=== PATIENT | female | born 1965 | race African-American/Black ===

== ENCOUNTER 2017-08-17 18:48 | Emergency (ER) | payer OTHER ==
[2017-08-17] MEDS ORDERED: MORPHINE 4 MG/ML SYR ONE (19:52)
[2017-08-17] MEDS ORDERED: NA CHLORIDE 0.9% 1,000 ML ONE (19:53)
[2017-08-17] MEDS ORDERED: ONDANSETRON 4 MG/2 ML VIAL ONE (19:53)
[2017-08-17 20:07] LABS: Urine Blood 1+ (NEG); Urine Glucose NEGATIVE (NEG); Urine Protein 1+ (NEG); Urine Specific Gravity >1.030 (1.005-1.030); Urine pH 5.5 (5.0-7.0)
[2017-08-17 20:11] LABS: Absolute Lymphocytes (CBC) 2.4 K/uL (0.7-4.9); Absolute Monocytes 0.5 K/uL (0.1-1.3); Absolute Neutrophil 4.5 K/uL (1.8-8.0); Basophils % 0.6 % (0-1.3); Eosinophils % 2.1 % (0-4.4); Hematocrit 36.7 % (36.0-45.0); Lymphocytes % 31.2 % (15.3-44.8); MCH 29.8 pg (27.0-35.0); MCV 88.2 fL (80-100); MPV 9.1 fL (7.6-11.3); Monocytes % 6.6 % (3.3-12.3); RBC Red Blood Cell Count 4.16 M/uL (3.86-4.86)
[2017-08-17 20:16] LABS: Urine Bacteria 20-50 /HPF (<20); Urine Culture Reflex Order REFLEXED; Urine Mucus 1+ /HPF (NONE SEEN)
[2017-08-17 20:19] LABS: Potassium 3.4 mEq/L (3.6-5.0)
[2017-08-17 20:25] LABS: Albumin 3.7 g/dL (3.2-5.5); Bilirubin Direct 0.1 mg/dL (0-0.2); Bilirubin Total 0.3 mg/dL (0.3-1.2)
--- NOTE | 2017-08-17 20:53 | RAD REPORT ---
EXAM DESCRIPTION: CTAbdomen Pelvis W Contrast - 08/17/2017 8:45 pm CLINICAL HISTORY: Abdominal pain. COMPARISON: 08/06/2015, 08/16/2013 TECHNIQUE: Biphasic CT imaging of the abdomen and pelvis was performed with 100 ml non-ionic IV cont rast. All CT scans are performed using dose optimization technique as appropriate and may include automated exposure control or mA/KV adjustment according to patient size. FINDINGS: The lung bases are clear. The liver demonstrates mild diffuse fatty infiltration. The spleen, pancreas, left adrenal gland and kidneys are within normal limits. 3 cm right adrenal myelolipoma is unchanged. No bowel obstruction, free air, free fluid or abscess. The appendix is normal. No evidence of signi ficant lymphadenopathy. No suspicious bony findings. Mild lumbar degenerative changes. IMPRESSION: No acute intra-abdominal or pelvic finding. Fatty liver. Stable right adrenal myelolipoma.
[2017-08-17] MEDS ORDERED: POTASSIUM CL SA 10 MEQ TAB PO ONE (21:18)
--- NOTE | 2017-08-17 21:25 | ER ---
Nurse's Notes [facility] Name: Crystal Newsome Age: 51 yrs Sex: Female : 1965 Arrival Date: 08/17/2017 Time: 18:50 Bed 14 Private MD: Diagnosis: Right flank pain. Abdominal pain Presentation: 08/17 18:53 Presenting complaint: Patient states: my right side is hurting, its like my side and tw2 goes to the back. Transition of care: patient was not received from another setting of care. Onset of symptoms was August 17, 2017. Initial Sepsis Screen: Does the patient meet any 2 criteria? No. Patient's initial sepsis screen is negative. Does the patient have a suspected source of infection? No. Patient's initial sepsis screen is negative. Care prior to arrival: None. 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 - Social history:: Smoking status: Patient/guardian denies using tobacco. Screenin:00 Abuse screen: Denies threats or abuse. Denies injuries from another. Nutritional bs1 screening: No deficits noted. Tuberculosis screening: No symptoms or risk factors identified. Fall Risk None identified. Assessment: 19:23 General: Appears uncomfortable, Behavior is cooperative, appropriate for age. Pain: bs1 Complains of pain in right flank/side Pain radiates to right side to flank. Neuro: Level of Consciousness is awake, alert, obeys commands, Oriented to person, place, time, situation, Appropriate for age Community Engagement Manager are equal bilaterally Moves all extremities. Gait is steady, Speech is normal, Facial symmetry appears normal. Cardiovascular: Denies chest pain, palpitations, shortness of breath, Heart tones S1 S2 present Capillary refill < 3 seconds Patient's skin is warm and dry. Respiratory: Airway is patent Trachea midline Respiratory effort is even, unlabored, Respiratory pattern is regular, symmetrical, Breath sounds are clear bilaterally. GI: No deficits noted. No signs and/or symptoms were reported involving the gastrointestinal system. Abdomen is round Bowel sounds present X 4 quads. : No deficits noted. No signs and/or symptoms were reported regarding the genitourinary system. Denies burning with urination, urinary frequency. EENT: No deficits noted. No signs and/or symptoms were reported regarding the EENT system. Derm: Skin is intact, Skin is pink, warm \T\ dry. Musculoskeletal: Circulation, motion, and sensation intact. Capillary refill < 3 seconds, Range of motion: intact in all extremities, Reports since right flank. 20:30 Reassessment: Patient appears in no apparent distress at this time. Patient and/or bs1 family updated on plan of care and expected duration. Pain level reassessed. Patient is alert, oriented x 3, equal unlabored respirations, skin warm/dry/pink. 21:45 Reassessment: Patient appears in no apparent distress at this time. Patient and/or bs1 family updated on plan of care and expected duration. Pain level reassessed. Patient is alert, oriented x 3, equal unlabored respirations, skin warm/dry/pink. Patient states symptoms have improved. Vital Signs: 18:57 BP 171 / 117; Pulse 103; Resp 18; Temp 99.3(O); Pulse Ox 96% on R/A; Weight 108.86 kg tw2 (R); Height 5 ft. 5 in. (165.10 cm); Pain 9/10; 19:17 BP 178 / 103; Pulse 99; Resp 16; Temp 98.6(O); Pulse Ox 99% on R/A; Weight 120.2 kg mt (R); Height 5 ft. 5 in. (165.10 cm) (R); 19:26 BP 142 / 91; Pulse 87; Pulse Ox 98% on R/A; bs1 20:04 BP 150 / 95; Pulse 92; Resp 18; Pulse Ox 99% on R/A; mt 20:44 BP 151 / 99; Pulse 89; Resp 18; Pulse Ox 97% on R/A; mt 21:45 BP 142 / 78; Pulse 94; Resp 16; Temp 98(O); Pulse Ox 98% on R/A; Pain 0/10; bs1 19:17 Body Mass Index 44.10 (120.20 kg, 165.10 cm) mn ED Course: 18:50 Patient arrived in ED. tw3 18:54 Triage completed. tw2 18:58 Arm band placed on. tw2 19:17 Jil Merchant, RN is Primary Nurse. bs1 19:41 Levi Lira MD is Attending Physician. pkl 20:15 Inserted saline lock: 22 gauge in right forearm, using aseptic technique. Missed bs1 attempt(s): 22 gauge in right antecubital area. 20:[address] via wheelchair. nj 20:44 CT completed. Patient tolerated procedure well. Patient moved back from CT. nj 20:45 CT Abd/Pelvis - W/Contrast In Process Unspecified. EDMS 21:00 Patient has correct armband on for positive identification. Bed in low position. Call bs1 light in reach. Side rails up X 1. Pulse ox on. NIBP on. 21:23 Varghese North MD is Referral Physician. pkl 22:04 No provider procedures requiring assistance completed. IV discontinued, bleeding bs1 controlled, No redness/swelling at site. Pressure dressing applied. Administered Medications: 20:18 Drug: NS 0.9% 1000 ml Route: IV; Rate: 125 ml/hr; Site: right forearm; bs1 22:05 Follow up: IV Status: Order to discontinue infusion; IV Intake: 200ml bs1 20:18 Drug: morphine 4 mg Route: IVP; Site: right forearm; bs1 22:06 Follow up: Response: No adverse reaction bs1 20:18 Drug: Zofran 4 mg Route: IVP; Site: right forearm; bs1 22:06 Follow up: Response: No adverse reaction bs1 21:19 Drug: K-Dur 20 mEq Route: PO; bs1 22:05 Follow up: Response: No adverse reaction bs1 Intake: 22:05 IV: 200ml; Total: 200ml. bs1 Outcome: 21:24 Discharge ordered by . pkl 22:05 Discharged to home ambulatory, with friend. bs1 22:05 Condition: stable 22:05 Discharge instructions given to patient, Instructed on discharge instructions, follow up and referral plans. medication usage, Demonstrated understanding of instructions, follow-up care, medications, Prescriptions given X 1. 22:07 Patient left the ED. bs1 Signatures: Dispatcher [employer] Levi Marvin MD MD pkl Wise, Tara, RN RN tw2 Aj Gonzalez Tia tw3 Mallory Santacruz mt, Brittany, RN RN bs1
--- NOTE | 2017-08-17 21:25 | EDPHYS ---
Physician Documentation [facility] Name: Crystal Newsome Age: 51 yrs Sex: Female : 1965 Arrival Date: 08/17/2017 Time: 18:50 Bed 14 Private MD: ED Physician Levi Lira HPI: 08/17 19:50 This 51 yrs old Black Female presents to ER via Ambulatory with complaints of Back Pain.pkl 19:50 The patient complains of pain in the right flank. The pain radiates to the right lower pkl quadrant. Onset: The symptoms/episode began/occurred yesterday. Associated signs and symptoms: Pertinent positives: nausea. The patient has not experienced similar symptoms in the past. 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 - Social history:: Smoking status: Patient/guardian denies using tobacco. ROS: 19:50 Eyes: Negative for injury, pain, redness, and discharge, ENT: Negative for injury, pkl pain, and discharge, Neck: Negative for injury, pain, and swelling, Cardiovascular: Negative for chest pain, palpitations, and edema, Respiratory: Negative for shortness of breath, cough, wheezing, and pleuritic chest pain. 19:50 Abdomen/GI: Positive for abdominal pain, nausea, of the right lower quadrant. 19:50 Back: Positive for flank pain, on the right. 19:50 : Negative for urinary symptoms. 19:50 MS/extremity: Negative for acute changes. 19:50 Skin: Negative for rash. 19:50 Neuro: Negative for altered mental status. Exam: 19:50 Head/Face: Normocephalic, atraumatic. Eyes: Pupils equal round and reactive to light, pkl extra-ocular motions intact. Lids and lashes normal. Conjunctiva and sclera are non-icteric and not injected. Cornea within normal limits. Periorbital areas with no swelling, redness, or edema. ENT: Nares patent. No nasal discharge, no septal abnormalities noted. Tympanic membranes are normal and external auditory canals are clear. Oropharynx with no redness, swelling, or masses, exudates, or evidence of obstruction, uvula midline. Mucous membranes moist. Neck: Trachea midline, no thyromegaly or masses palpated, and no cervical lymphadenopathy. Supple, full range of motion without nuchal rigidity, or vertebral point tenderness. No Meningismus. Chest/axilla: Normal chest wall appearance and motion. Nontender with no deformity. No lesions are appreciated. Cardiovascular: Regular rate and rhythm with a normal S1 and S2. No gallops, murmurs, or rubs. Normal PMI, no JVD. No pulse deficits. Respiratory: Lungs have equal breath sounds bilaterally, clear to auscultation and percussion. No rales, rhonchi or wheezes noted. No increased work of breathing, no retractions or nasal flaring. 19:50 Abdomen/GI: Bowel sounds: normal, Palpation: soft, mild abdominal tenderness, in the right upper quadrant and right lower quadrant, rebound tenderness, is not appreciated. 19:50 Back: pain, that is moderate, of the right flank. 19:50 : Exam negative for acute changes. 19:50 Musculoskeletal/extremity: Exam is negative for acute changes. 19:50 Skin: Exam negative for rash. 19:50 Neuro: Orientation: is normal, Mentation: is normal, Cranial nerves: grossly normal, Motor: is normal. Vital Signs: 18:57 BP 171 / 117; Pulse 103; Resp 18; Temp 99.3(O); Pulse Ox 96% on R/A; Weight 108.86 kg tw2 (R); Height 5 ft. 5 in. (165.10 cm); Pain 9/10; 19:17 BP 178 / 103; Pulse 99; Resp 16; Temp 98.6(O); Pulse Ox 99% on R/A; Weight 120.2 kg mt (R); Height 5 ft. 5 in. (165.10 cm) (R); 19:26 BP 142 / 91; Pulse 87; Pulse Ox 98% on R/A; bs1 20:04 BP 150 / 95; Pulse 92; Resp 18; Pulse Ox 99% on R/A; mt 20:44 BP 151 / 99; Pulse 89; Resp 18; Pulse Ox 97% on R/A; mt 21:45 BP 142 / 78; Pulse 94; Resp 16; Temp 98(O); Pulse Ox 98% on R/A; Pain 0/10; bs1 19:17 Body Mass Index 44.10 (120.20 kg, 165.10 cm) mt MDM: 19:41 Patient medically screened. pkl 21:22 Data reviewed: vital signs, nurses notes, lab test result(s), radiologic studies, CT pkl scan. 08/17 19:50 Order name: Amylase, Serum; Complete Time: 21:14 pkl 08/17 19:50 Order name: Basic Metabolic Panel; Complete Time: 21:14 pkl 08/17 19:50 Order name: CBC with Diff; Complete Time: 21:14 pkl 08/17 19:50 Order name: Creatinine for Radiology; Complete Time: 20:19 pkl 08/17 19:50 Order name: Hepatic Function; Complete Time: 21:14 pkl 08/17 19:50 Order name: Lipase; Complete Time: 21:14 pkl 08/17 19:50 Order name: Urine Microscopic Only; Complete Time: 20:19 pkl 08/17 20:04 Order name: Urine Dipstick--Ancillary (enter results); Complete Time: 20:19 rg2 08/17 20:04 Order name: Urine --Ancillary (enter results); Complete Time: 20:19 rg2 08/17 20:17 Order name: Urine Culture EDKS 08/17 20:21 Order name: CT Abd/Pelvis - W/Contrast; Complete Time: 21:14 pkl 08/17 19:50 Order name: IV Saline Lock; Complete Time: 21:35 pkl 08/17 19:50 Order name: Labs collected and sent; Complete Time: 21:35 pkl 08/17 19:50 Order name: Urine Dipstick-Ancillary (obtain specimen); Complete Time: 21:35 pkl Administered Medications: 20:18 Drug: NS 0.9% 1000 ml Route: IV; Rate: 125 ml/hr; Site: right forearm; bs1 22:05 Follow up: IV Status: Order to discontinue infusion; IV Intake: 200ml bs1 20:18 Drug: morphine 4 mg Route: IVP; Site: right forearm; bs1 22:06 Follow up: Response: No adverse reaction bs1 20:18 Drug: Zofran 4 mg Route: IVP; Site: right forearm; bs1 22:06 Follow up: Response: No adverse reaction bs1 21:19 Drug: K-Dur 20 mEq Route: PO; bs1 22:05 Follow up: Response: No adverse reaction bs1 Disposition: 08/17/17 21:24 Discharged to Home. Impression: Right flank pain. Abdominal pain. - Condition is Stable. - Prescriptions for Ultram 50 mg Oral Tablet - take 1 tablet by ORAL route every 8 hours As needed; 20 tablet. - Medication Reconciliation Form, Thank You Letter, Antibiotic Education, Prescription Opioid Use form. - Follow up: Varghese North MD; When: 2 - 3 days; Reason: Re-evaluation by your physician. - Problem is new. - Symptoms have improved. Signatures: Dispatcher [employer] EDMS Levi Lira MD MD pkl Wise, Tara RN RN tw2 Jil Merchant RN RN bs1
[2017-08-17 22:16] VITALS: BP 142/78; TEMP 98; O2SAT 98
== END 2017-08-17 22:07 | disposition home or self-care (01) ==
LOC: ER 18:48
DX: R10.31 Right lower quadrant pain (principal); I10 Essential (primary) hypertension; Z88.0 Allergy status to penicillin; Z88.1 Allergy status to other antibiotic agents
CPT/HCPCS: 36415; 74177; 80048; 80076; 81003; 81015; 81025; 82150; 83690; 85025; 87086; 87088; 96361; 96374; 96375; 99284; J2405; J7030; Q9967

== ENCOUNTER 2018-03-04 15:19 | Observation (INO) | payer OTHER ==
[2018-03-04] MEDS ORDERED: NITROGLYCERIN 0.4 MG/TAB SL ONE (15:47)
[2018-03-04] MEDS ORDERED: ASPIRIN 81 MG CHEWABLE TABLET ONE (15:47)
[2018-03-04 16:18] LABS: Absolute Lymphocytes (CBC) 1.5 K/uL (0.7-4.9); Absolute Monocytes 0.5 K/uL (0.1-1.3); Absolute Neutrophil 2.1 K/uL (1.8-8.0); Basophils % 0.6 % (0-1.3); Eosinophils % 2.4 % (0-4.4); Hematocrit 37.5 % (36.0-45.0); Lymphocytes % 34.6 % (15.3-44.8); MCH 30.1 pg (27.0-35.0); MCV 90.3 fL (80-100); MPV 9.4 fL (7.6-11.3); Monocytes % 12.1 % (3.3-12.3); RBC Red Blood Cell Count 4.16 M/uL (3.86-4.86)
[2018-03-04 16:19] LABS: Protime INR 1.22
[2018-03-04 16:36] LABS: ALT/SGPT 23 U/L (12-78); AST/SGOT 19 U/L (15-37); Albumin 3.2 g/dL (3.4-5.0); Alkaline Phosphatase 86 U/L (45-117); BUN Blood Urea Nitrogen 10 mg/dL (7-18); Bicarbonate 26 mmol/L (21-32); Bilirubin Direct < 0.1 mg/dL (0-0.2); Bilirubin Total 0.2 mg/dL (0.2-1.0); Glucose Level 95 mg/dL (74-106); Lipase 236 U/L (73-393); Magnesium 1.9 mg/dL (1.8-2.4); NT PRO-BNP 57 pg/mL (<125); Potassium 3.9 mmol/L (3.5-5.1); Sodium Level 139 mmol/L (136-145); Troponin (Emerg Dept Use Only) < 0.02 ng/mL (0.0-0.045)
--- NOTE | 2018-03-04 16:58 | EDPHYS ---
Physician Documentation [facility] Name: Crystal Newsome Age: 52 yrs Sex: Female : 1965 Arrival Date: 03/04/2018 Time: 15:21 Bed 15 Private MD: Fredis King E ED Physician Yonas Holder HPI: 03/04 15:34 This 52 yrs old Black Female presents to ER via Ambulatory with complaints of Chest cp Pain. 15:34 The patient or guardian reports chest pain that is located primarily in the substernal cp area. 15:34 Onset: this morning, at 03:00. The pain radiates to the left arm. cp 15:34 The chest pain is described as aching. cp 15:34 Duration: The patient or guardian reports a single episode, that is still ongoing, and cp worsening. SVP RESEARCH & EBUSINESS OPERATIONS: 15:26 LMP N/A - Post-menopause aj Historical: - Allergies: 15:26 amoxicillin trihydrate; aj 15:26 Augmentin; aj - Home Meds: 15:26 none [Active]; aj - PMHx: 15:26 Hypertension; aj - PSHx: 15:26 ; aj - Immunization history:: Adult Immunizations up to date. - Social history:: Smoking status: Patient/guardian denies using tobacco. - Ebola Screening: : Patient negative for fever greater than or equal to 101.5 degrees Fahrenheit, and additional compatible Ebola Virus Disease symptoms Patient denies exposure to infectious person Patient denies travel to an Ebola-affected area in the 21 days before illness onset No symptoms or risks identified at this time. ROS: 15:39 Constitutional: Negative for body aches, chills, fever, poor PO intake. cp 15:39 Eyes: Negative for injury, pain, redness, and discharge. cp 15:39 Eyes: Negative for discharge, redness. cp 15:39 Cardiovascular: Positive for chest pain, Negative for edema, palpitations. cp 15:39 Respiratory: Negative for cough, shortness of breath, wheezing. 15:39 Abdomen/GI: Negative for abdominal pain, nausea, vomiting, and diarrhea, black/tarry stool, rectal bleeding. 15:39 Back: Negative for pain at rest, pain with movement, radiated pain. 15:39 MS/extremity: Positive for pain, of the left arm. 15:39 Skin: Negative for cellulitis, rash. 15:39 Neuro: Negative for altered mental status, headache, numbness, syncope, near syncope, tingling, weakness. 15:39 All other systems are negative. Exam: 15:41 ECG was reviewed by the Attending Physician. cp 15:45 Constitutional: The patient appears in no acute distress, alert, awake, cp non-diaphoretic, non-toxic, well developed, well nourished, uncomfortable. 15:45 Head/Face: Normocephalic, atraumatic. Eyes: Pupils equal round and reactive to light, cp extra-ocular motions intact. Lids and lashes normal. Conjunctiva and sclera are non-icteric and not injected. Cornea within normal limits. Periorbital areas with no swelling, redness, or edema. ENT: Nares patent. No nasal discharge, no septal abnormalities noted. Tympanic membranes are normal and external auditory canals are clear. Oropharynx with no redness, swelling, or masses, exudates, or evidence of obstruction, uvula midline. Mucous membranes moist. Neck: Trachea midline, no thyromegaly or masses palpated, and no cervical lymphadenopathy. Supple, full range of motion without nuchal rigidity, or vertebral point tenderness. No Meningismus. Chest/axilla: Normal chest wall appearance and motion. Nontender with no deformity. No lesions are appreciated. Cardiovascular: Regular rate and rhythm with a normal S1 and S2. No gallops, murmurs, or rubs. Normal PMI, no JVD. No pulse deficits. Respiratory: Lungs have equal breath sounds bilaterally, clear to auscultation and percussion. No rales, rhonchi or wheezes noted. No increased work of breathing, no retractions or nasal flaring. Abdomen/GI: Soft, non-tender, with normal bowel sounds. No distension or tympany. No guarding or rebound. No evidence of tenderness throughout. Back: No spinal tenderness. No costovertebral tenderness. Full range of motion. Skin: Warm, dry with normal turgor. Normal color with no rashes, no lesions, and no evidence of cellulitis. Neuro: Awake and alert, GCS 15, oriented to person, place, time, and situation. Cranial nerves II-XII grossly intact. Motor strength 5/5 in all extremities. Sensory grossly intact. Cerebellar exam normal. Normal gait. Vital Signs: 15:26 BP 180 / 98; Pulse 88; Resp 20; Temp 97.6; Pulse Ox 98% on R/A; Weight 119.29 kg; aj Height 5 ft. 4 in. (162.56 cm); 15:45 BP 159 / 103; Pulse 93; Resp 18 S; Pulse Ox 99% ; Pain 5/10; aa5 16:10 BP 158 / 90; Pulse 90; Resp 18 S; Pulse Ox 97% on R/A; Pain 4/10; aa5 16:35 BP 153 / 82; Pulse 74; Resp 19 S; Temp 98.0(O); Pulse Ox 100% on R/A; Pain 3/10; aa5 17:30 BP 158 / 91; Pulse 76; Resp 16 S; Pulse Ox 99% on R/A; Pain 3/10; aa5 19:57 BP 139 / 77; Pulse 72; Resp 20; Pulse Ox 96% on R/A; tl2 15:26 Body Mass Index 45.14 (119.29 kg, 162.56 cm) aj MDM: 15:27 Patient medically screened. cp 16:00 Differential diagnosis: abnormal EKG, acute myocardial infarction, acute pericarditis, cp costochondritis, gastritis, pancreatitis, pericarditis, pleurisy, pneumonia, pneumothorax, pulmonary embolus, stable angina, thoracic aortic disection, unstable angina. 16:55 The patient was given aspirin in the Emergency Department. cp 16:55 Data reviewed: vital signs, nurses notes, lab test result(s), EKG, radiologic studies, cp plain films. Test interpretation: by ED physician or midlevel provider: ECG, plain radiologic studies. Response to treatment: the patient's symptoms have markedly improved after treatment, and as a result, I will admit patient. Physician consultation: Dao Pizarro DO was contacted at 16:55, regarding admission, to the telemetry unit. patient's condition. 03/04 15:34 Order name: Basic Metabolic Panel; Complete Time: 16:40 cp 03/04 16:56 Interpretation: Normal except: GFR 79. cp 03/04 15:34 Order name: CBC with Diff; Complete Time: 16:55 cp 03/04 16:55 Interpretation: Normal except: WBC 4.2. cp 03/04 15:34 Order name: LFT's; Complete Time: 16:40 03/04 16:56 Interpretation: Normal except: ALB 3.2; GLOB 4.8; A/G 0.7. 03/04 15:34 Order name: Magnesium; Complete Time: 16:40 03/04 15:34 Order name: NT PRO-BNP; Complete Time: 16:40 03/04 15:34 Order name: PT-INR; Complete Time: 16:55 03/04 15:34 Order name: Troponin (emerg Dept Use Only); Complete Time: 16:40 03/04 16:56 Interpretation: TROPED < 0.02; Reviewed. 03/04 15:34 Order name: Lipase; Complete Time: 16:40 03/04 17:06 Order name: T4 Free [facility] 03/04 17:06 Order name: Thyroid Stimulating Hormone [facility] 03/04 17:06 Order name: Basic Metabolic Panel [facility] 03/04 17:06 Order name: Basic Metabolic Panel [facility] 03/04 17:06 Order name: CKMB Creatine Kinase MB [facility] 03/04 17:06 Order name: CKMB Creatine Kinase MB [facility] 03/04 15:34 Order name: XRAY Chest (1 view) 03/04 17:06 Order name: CKMB Creatine Kinase MB [facility] 03/04 17:06 Order name: Creatine Phosphokinase [facility] 03/04 17:06 Order name: Creatine Phosphokinase [facility] 03/04 17:06 Order name: Creatine Phosphokinase [facility] 03/04 17:06 Order name: Lipid Profile [facility] 03/04 17:06 Order name: Lipid Profile [facility] 03/04 17:06 Order name: Magnesium [facility] 03/04 17:06 Order name: Magnesium [facility] 03/04 17:06 Order name: Troponin I [facility] 03/04 17:06 Order name: Troponin I [facility] 03/04 17:06 Order name: Troponin I [facility] 03/04 15:34 Order name: EKG; Complete Time: 15:35 03/04 15:34 Order name: Cardiac monitoring; Complete Time: 16:02 03/04 15:34 Order name: EKG - Nurse/Tech; Complete Time: 16:02 03/04 15:34 Order name: IV Saline Lock; Complete Time: 16:02 03/04 15:34 Order name: Labs collected and sent; Complete Time: 16:02 cp 03/04 15:34 Order name: O2 Per Protocol; Complete Time: 16:02 cp 03/04 15:34 Order name: O2 Sat Monitoring; Complete Time: 16:02 cp 03/04 17:01 Order name: Diet Heart Healthy; Complete Time: 17:02 mh5 03/04 17:06 Order name: CONS Physician Consult EDMS 03/04 17:06 Order name: Heart Healthy EDMS EC:41 Rate is 72 beats/min. Rhythm is regular. OK interval is normal. QRS interval is normal. cp QT interval is normal. Interpreted by me. Reviewed by me. Administered Medications: 15:38 Drug: Nitroglycerin 0.4 mg Route: Sublingual; aa5 15:45 Follow up: Response: No adverse reaction; Pain is decreased aa5 15:38 Drug: Aspirin Chewable Tablet 324 mg Route: PO; aa5 16:00 Follow up: Response: No adverse reaction aa5 16:35 Not Given (Patient Refused): Nitroglycerin 0.4 mg Sublingual once; VO received at 1545 aa5 17:00 Drug: Metoprolol 25 mg Route: PO; aa5 17:30 Follow up: Response: No adverse reaction aa5 Disposition: 03/04/18 16:57 Hospitalization ordered by Dao Pizarro for Observation. Preliminary diagnosis are Chest pain, unspecified, Hypertensive heart disease. - Bed requested for Telemetry/MedSurg (observation). - Status is Observation. tl2 - Condition is Stable. - Problem is new. - Symptoms have improved. UTI on Admission? No Addendum: 03/07/2018 09:46 Co-signature as Attending Physician, Yonas Holder MD I agree with the assessment and c romero plan of care. Signatures: Dispatcher [employer] [facility] Yovana Campbell RN RN dw Myers, Amanda, RN RN aj Anderson, Corey, MD MD cha Calderon, Audri RN RN aa5 Yonas Thibodeaux PA PA cp Knox, Taylor RN RN tl2 Corrections: (The following items were deleted from the chart) 03/04 17:50 15:34 Urine Test ordered. aa 17:50 15:34 Urine Dipstick-Ancillary ordered. aa5 18:32 16:57 Hospitalization Ordered by Dao Pizarro DO for Observation. Preliminary dw diagnosis is Chest pain, unspecified; Hypertensive heart disease. Bed requested for Telemetry/MedSurg (observation). Status is Observation. Condition is Stable. Problem is new. Symptoms have improved. UTI on Admission? No. cp 21:04 18:32 03/04/2018 16:57 Hospitalization Ordered by Dao Pizarro DO for Observation. tl2 Preliminary diagnosis is Chest pain, unspecified; Hypertensive heart disease. Bed requested for Telemetry/MedSurg (observation). Status is Observation. Condition is Stable. Problem is new. Symptoms have improved. UTI on Admission? No. dw
--- NOTE | 2018-03-04 16:58 | ER ---
Nurse's Notes [facility] Name: Crystal Newsome Age: 52 yrs Sex: Female : 1965 Arrival Date: 03/04/2018 Time: 15:21 Bed 15 Private MD: Fredis King E Diagnosis: Chest pain, unspecified;Hypertensive heart disease Presentation: 03/04 15:24 Presenting complaint: Patient states: Sternal chest pain that started at 0300 this AM. aj Patient reports pain has been unrelieved by Tums. Reports pain is now radiating into left arm. Transition of care: patient was not received from another setting of care. Onset of symptoms was March 04, 2018. Risk Assessment: Do you want to hurt yourself or someone else? Patient reports no desire to harm self or others. Initial Sepsis Screen: Does the patient meet any 2 criteria? No. Patient's initial sepsis screen is negative. Does the patient have a suspected source of infection? No. Patient's initial sepsis screen is negative. Care prior to arrival: None. 15:24 Method Of Arrival: Ambulatory 15:24 Acuity: YAMILE 2 Triage Assessment: 15:26 General: Appears in no apparent distress. uncomfortable, Behavior is calm, cooperative, aj appropriate for age. Pain: Complains of pain in chest and left arm. Neuro: Level of Consciousness is awake, alert, obeys commands, Oriented to person, place, time, situation, Appropriate for age. Cardiovascular: Reports chest pain, shortness of breath, Capillary refill < 3 seconds in bilateral fingers Patient's skin is warm and dry. Chest pain is described as severe, radiates to left arm(s). Respiratory: Reports shortness of breath Airway is patent Respiratory effort is even, unlabored, Respiratory pattern is regular, symmetrical. Derm: Skin is intact, is healthy with good turgor, Skin is pink, warm \\T\\ dry. normal. 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 - Social history:: Smoking status: Patient/guardian denies using tobacco. - Ebola Screening: : Patient negative for fever greater than or equal to 101.5 degrees Fahrenheit, and additional compatible Ebola Virus Disease symptoms Patient denies exposure to infectious person Patient denies travel to an Ebola-affected area in the 21 days before illness onset No symptoms or risks identified at this time. Screenin:30 Abuse screen: Denies threats or abuse. Nutritional screening: No deficits noted. aa5 Tuberculosis screening: No symptoms or risk factors identified. Fall Risk None identified. Assessment: 15:30 General: Appears uncomfortable, Behavior is calm, cooperative. Pain: Complains of pain aa5 in mid-sternal area Pain radiates to left arm Pain currently is 10 out of 10 on a pain scale. Quality of pain is described as Pt states "It just hurts" Pain began Pt states "around 3 am today" Is continuous. Neuro: Level of Consciousness is awake, alert, obeys commands, Oriented to person, place, time, situation. Cardiovascular: Heart tones S1 S2 present Rhythm is sinus rhythm. Respiratory: Airway is patent Respiratory effort is even, unlabored, Respiratory pattern is regular, symmetrical, Breath sounds are clear bilaterally. GI: Abdomen is round non-distended, Bowel sounds present X 4 quads. Abd is soft and non tender X 4 quads. : No signs and/or symptoms were reported regarding the genitourinary system. EENT: No signs and/or symptoms were reported regarding the EENT system. Derm: Skin is dry, Skin is normal, Skin temperature is warm. Musculoskeletal: Range of motion: intact in all extremities. 15:45 Reassessment: Patient states feeling better. Pain: Pain currently is 5 out of 10 on a aa5 pain scale. Neuro: Level of Consciousness is awake, alert, obeys commands, Oriented to person, place, time, situation. Respiratory: Airway is patent Respiratory effort is even, unlabored, Respiratory pattern is regular, symmetrical. Derm: Skin is dry, Skin is normal, Skin temperature is warm. 16:35 Reassessment: Patient and/or family updated on plan of care and expected duration. Pain aa5 level reassessed. Patient states feeling better. Pain: Pain currently is 3 out of 10 on a pain scale. Neuro: Level of Consciousness is awake, alert, obeys commands, Oriented to person, place, time, situation. Respiratory: Airway is patent Respiratory effort is even, unlabored, Respiratory pattern is regular, symmetrical. Derm: Skin is dry, Skin is normal, Skin temperature is warm. 17:30 Reassessment: Patient and/or family updated on plan of care and expected duration. Pain aa5 level reassessed. Patient states feeling better. Pain: Pain currently is 3 out of 10 on a pain scale. Neuro: Level of Consciousness is awake, alert, obeys commands, Oriented to person, place, time, situation. Respiratory: Airway is patent Respiratory effort is even, unlabored, Respiratory pattern is regular, symmetrical. Derm: Skin is dry, Skin is normal, Skin temperature is warm. 17:45 Reassessment: Pt sitting up in bed eating, pt tolerating well. Awaiting room assignment aa5 . 19:20 Reassessment: Pt stable and ready for transport upstairs when nurse is ready. tl2 Vital Signs: 15:26 BP 180 / 98; Pulse 88; Resp 20; Temp 97.6; Pulse Ox 98% on R/A; Weight 119.29 kg; aj Height 5 ft. 4 in. (162.56 cm); 15:45 BP 159 / 103; Pulse 93; Resp 18 S; Pulse Ox 99% ; Pain 5/10; aa5 16:10 BP 158 / 90; Pulse 90; Resp 18 S; Pulse Ox 97% on R/A; Pain 4/10; aa5 16:35 BP 153 / 82; Pulse 74; Resp 19 S; Temp 98.0(O); Pulse Ox 100% on R/A; Pain 3/10; aa5 17:30 BP 158 / 91; Pulse 76; Resp 16 S; Pulse Ox 99% on R/A; Pain 3/10; aa5 19:57 BP 139 / 77; Pulse 72; Resp 20; Pulse Ox 96% on R/A; tl2 15:26 Body Mass Index 45.14 (119.29 kg, 162.56 cm) aj ED Course: 15:21 Patient arrived in ED. mr 15:21 Fredis King MD is Private Physician. mr 15:25 Triage completed. aj 15:26 Arm band placed on left wrist. Patient placed in an exam room. EKG completed in triage. aj Results shown to . 15:27 Yonas Thibodeaux PA is PHCP. cp 15:27 Yonas Holder MD is Attending Physician. cp 15:30 Patient has correct armband on for positive identification. Placed in gown. Bed in low aa5 position. Call light in reach. Side rails up X2. noteman on. Pulse ox on. NIBP on. 15:32 EKG done, by electronic systems technician. reviewed by Yonas ARNOLD. sm3 15:35 Nicolasa Ch, RN is Primary Nurse. aa5 15:45 Patient maintains SpO2 saturation greater than 95% on room air. aa5 15:48 Missed attempt(s): 20 gauge in right antecubital area. mh5 15:59 Initial lab(s) drawn, by me, sent to lab. Inserted saline lock: 22 gauge in right aa5 forearm, using aseptic technique. Blood collected. 16:19 X-ray completed. Portable x-ray completed in exam room. Patient tolerated procedure mh1 well. 16:35 XRAY Chest (1 view) In Process Unspecified. EDMS 16:56 Dao Pizarro DO is Hospitalizing Provider. cp 18:01 No provider procedures requiring assistance completed. aa5 19:05 Report given to SAMIR Chiang. aa5 21:04 Patient admitted, IV remains in place. tl2 Administered Medications: 15:38 Drug: Nitroglycerin 0.4 mg Route: Sublingual; aa5 15:45 Follow up: Response: No adverse reaction; Pain is decreased aa5 15:38 Drug: Aspirin Chewable Tablet 324 mg Route: PO; aa5 16:00 Follow up: Response: No adverse reaction aa5 16:35 Not Given (Patient Refused): Nitroglycerin 0.4 mg Sublingual once; VO received at 1545 aa5 17:00 Drug: Metoprolol 25 mg Route: PO; aa5 17:30 Follow up: Response: No adverse reaction aa5 Outcome: 16:57 Decision to Hospitalize by Provider. cp 21:03 Admitted to Tele accompanied by tech, via wheelchair, room 411, with chart, Report tl2 called to SAMIR Goyal 21:03 Condition: stable 21:03 Discharge instructions given to patient, Instructed on the need for admit. 21:04 Patient left the ED. tl2 Signatures: Dispatcher [employer] EDMS Mariel De Santiago RN RN aj Rivera, Mary mr Harvey, Martha 1 Nicolasa Ch, RN RN aa5 Yonas Thibodeaux PA PA cp Knox, Taylor, RN RN tl2 Linnette Anderson 5 Magalie Clark 3
[2018-03-04] MEDS ORDERED: NITROGLYCERIN 0.4 MG/TAB SL PRN (17:01)
[2018-03-04] MEDS ORDERED: ACETAMINOPHEN 500 MG TAB PO PRN (17:01)
[2018-03-04] MEDS ORDERED: MORPHINE 2 MG/ML SYR IV PRN (17:01)
[2018-03-04] MEDS ORDERED: ONDANSETRON 4 MG/2 ML VIAL IV PRN (17:01)
--- NOTE | 2018-03-04 17:02 | RAD REPORT ---
EXAM DESCRIPTION: RAD - Chest Single View - 03/04/2018 4:24 pm CLINICAL HISTORY: Chest pain COMPARISON: July 2015 TECHNIQUE: AP portable chest image was obtained 1617 hours . FINDINGS: Lungs are clear. Heart and vasculature are normal. No measurable pleural effusion and no p neumothorax. No acute bony abnormality seen. No acute aortic findings suspected. IMPRESSION: No acute cardiopulmonary process. No significant interval change.
[2018-03-04] MEDS ORDERED: METOPROLOL TAR 25 MG TAB ONE (17:07)
--- NOTE | 2018-03-04 17:12 | P.HP ---
Certification for Inpatient Patient admitted to: Observation With expected LOS: <2 Midnights Patient will require the following post-hospital care: None Practitioner: I am a practitioner with admitting privileges, knowledge of patient current condition, hospital course, and medical plan of care. Services: Services provided to patient in accordance with Admission requirements found in Title 42 Section 412.3 of the Code of Federal Regulations Patient History Date of Service: 03/04/18 Primary Care Provider: Dr. King Reason for admission: Chest pain History of Present Illness: 52-year-old female presented to the emergency room with chest pain. Chest pain started last night around 3:00 a.m.. It was mainly to the substernal region. She also had pain to the left arm. There was mild radiation. She thought it was gas related. She woke up that morning and had some Tums with Pepsi. She was elevated better. The pain persisted. There was no indication of shortness of breath, nausea, vomiting, palpitations or lightheadedness. She came to the ER for further evaluation. Patient with history of hypertension. In the ER patient evaluated. Blood pressures elevated upon arrival. Blood pressure 179/115. Initial CBC unremarkable. BMP unremarkable. Troponin unremarkable. No significant EKG changes noted. Patient was admitted for observation. When I saw the patient ER, she appeared comfortable. She reported that the pain was improved with aspirin and nitro given in the emergency room. Blood pressures improved with a blood pressure 153/82. Patient does not smoke or drink alcohol. Patient reports having a stress test many years ago which was unremarkable. Patient does snore heavily. Allergies amoxicillin trihydrate [From Augmentin] Allergy (Intermediate, Verified 14:42) Itching/Hives/Rash potassium clavulanate [From Augmentin] Allergy (Intermediate, Verified 02/12/12 14:42) Itching/Hives/Rash No Known Allergies Allergy (Uncoded 08/07/15 01:40) Unknown Home medications list reviewed: Yes - Past Medical/Surgical History Diabetic: No -: Hypertension -: Obesity -: Suspect obstructive sleep apnea -: Psychosocial/ Personal History: Patient is single. She has 4 children. 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 - Family History Father -: Cancer (Throat cancer) - Social History Smoking Status: Never smoker Alcohol use: No CD- Drugs: No Caffeine use: Yes Place of Residence: Home Review of Systems General: As per HPI Eyes: Unremarkable ENT: Unremarkable Respiratory: Unremarkable Cardiovascular: Chest Pain, As per HPI Gastrointestinal: As per HPI Genitourinary: Unremarkable Musculoskeletal: Unremarkable Integumentary: Unremarkable Neurological: Unremarkable Lymphatics: Unremarkable Physical Examination - Physical Exam General: Alert, In no apparent distress, Oriented x3, Cooperative HEENT: Atraumatic, Normocephalic, PERRLA, Mucous membr. moist/pink, EOMI Neck: Supple, No Thyromegaly Respiratory: Clear to auscultation bilaterally, Normal air movement Cardiovascular: Normal pulses, Regular rate/rhythm Gastrointestinal: Normal bowel sounds, Soft and benign, Non-distended, No tenderness, No masses, No rebound, No guarding Musculoskeletal: No erythema, No tenderness, No warmth Integumentary: No tenderness/swelling, No erythema, No warmth, No cyanosis Neurological: Normal speech, Normal strength at 5/5 x4 extr, Normal tone, Normal affect - Studies Laboratory Data (last 24 hrs) 03/04/18 15:58: PT 14.4 H, INR 1.22 03/04/18 15:58: WBC 4.2 L, Hgb 12.5, Hct 37.5, Plt Count 242 03/04/18 15:58: Sodium 139, Potassium 3.9, BUN 10, Creatinine 0.90, Glucose 95, Magnesium 1.9, Total Bilirubin 0.2, AST 19, ALT 23, Alkaline Phosphatase 86, Lipase 236 Assessment and Plan - Plan Impression: Chest pain, atypical with hypertension, uncontrolled History of snoring likely underlying obstructive sleep apnea Obesity Plan: Chest pain, atypical with hypertension, uncontrolled: Will monitor the patient closely. Continue with chest pain protocol. Will continue with aspirin. Will provide nitro glycerin for chest pain. Blood pressure is uncontrolled. Will increase lisinopril to 20 mg 1 pill twice daily. Will add metoprolol 12.5 mg 1 pill twice daily. Will hold hydrochlorothiazide. Will continue to monitor on telemetry. Will order echocardiogram to further evaluate. Cardiology consulted to further assess. If unremarkable anticipate possible discharge tomorrow with cardiac workup as an outpatient. Patient will need better blood pressure control History of snoring likely underlying obstructive sleep apnea: Patient reports snoring. Patient likely with underlying obstructive sleep apnea. Patient will need follow up with pulmonology as an outpatient to further evaluate. Obesity: Will check BMI. Lifestyle modification education will be provided. Discharge Plan: Home Plan to discharge in: 24 Hours - Advance Directives Does patient have a Living Will: No Does patient have a Durable POA for Healthcare: No - Code Status/Comfort Care Code Status Assessed: Yes (Patient full code) Time Spent Managing Pts Care (In Minutes): 55
[2018-03-04] MEDS ORDERED: ENOXAPARIN 40 MG/0.4 ML SQ SCH (18:00)
[2018-03-04] MEDS: METOPROLOL TAR 25 MG TAB PO SCH (18:00)
--- NOTE | 2018-03-04 18:46 | EKG ---
Test Date: 2018-03-04 Test Time: 15:31:12 Information Management Specialist: XENA MEASUREMENT RESULTS: Intervals: Rate: 72 NM: 172 QRSD: 84 QT: 414 QTc: 453 [place]: P: 7 NM: 172 QRS: 28 T: -16 INTERPRETIVE STATEMENTS: Normal sinus rhythm Possible Inferior infarct, age undetermined Possible Anterior infarct, age undetermined Abnormal ECG Compared to ECG 08/06/2015 21:11:28 Myocardial infarct finding now present T-wave abnormality no longer present Possible ischemia no longer present Electronically Signed On 03-04-18 18:44:42 MACHINE PLUG [employer] by Garett Wellington
[2018-03-04 21:45] VITALS: BMI 43.5
[2018-03-04] MEDS: LISINOPRIL 20 MG TAB PO SCH (21:45)
[2018-03-04 23:17] LABS: CKMB Creatine Kinase MB < 1.0 ng/mL (0.3-3.6); Creatine Phosphokinase 159 U/L (26-192); Troponin I < 0.02 ng/mL (0.0-0.045)
[2018-03-05 00:55] LABS: Urine Appearance CLEAR; Urine Bilirubin NEGATIVE (NEG); Urine Blood TRACE (NEG); Urine Color YELLOW; Urine Glucose NEGATIVE (NEG); Urine Protein NEGATIVE (NEG); Urine Urobilinogen 0.2 mg/dL (0.2-1.0); Urine pH 6.5 (5.0-7.0)
[2018-03-05 00:57] LABS: Urine Microscopic Reflex ORDER UMIC
[2018-03-05 02:04] LABS: Urine Bacteria >50 /HPF (<20); Urine Culture Reflex Order REFLEXED; Urine RBC <5 /HPF (NONE SEEN)
[2018-03-05] MEDS: METOPROLOL TAR 25 MG TAB PO SCH (05:23)
[2018-03-05 06:18] LABS: Absolute Lymphocytes (CBC) 1.6 K/uL (0.7-4.9); Absolute Monocytes 0.4 K/uL (0.1-1.3); Absolute Neutrophil 1.4 K/uL (1.8-8.0); Basophils % 0.7 % (0-1.3); Hematocrit 36.2 % (36.0-45.0); Lymphocytes % 44.2 % (15.3-44.8); MCH 30.4 pg (27.0-35.0); MCV 88.7 fL (80-100); MPV 9.5 fL (7.6-11.3); Monocytes % 12.2 % (3.3-12.3); RBC Red Blood Cell Count 4.08 M/uL (3.86-4.86)
[2018-03-05] MEDS ORDERED: PANTOPRAZOLE 40MG TABLET PO SCH (06:30)
[2018-03-05 06:39] LABS: CKMB Creatine Kinase MB < 1.0 ng/mL (0.3-3.6); Creatine Phosphokinase 155 U/L (26-192); Troponin I < 0.02 ng/mL (0.0-0.045)
[2018-03-05 06:45] LABS: Potassium 3.9 mmol/L (3.5-5.1); Thyroid Stimulating Hormone 1.35 uIU/mL (0.360-3.740)
[2018-03-05] MEDS ORDERED: POTASSIUM 25 MEQ EFFERV TAB PO ONE (06:51)
[2018-03-05] MEDS: LISINOPRIL 20 MG TAB PO SCH (08:44)
[2018-03-05] MEDS ORDERED: ASPIRIN EC 81 MG TAB PO SCH (09:00)
--- NOTE | 2018-03-05 09:30 | P.DS ---
Admission Date: 03/04/18 Discharge Date: 03/05/18 Primary Care Provider: Dr. King Disposition: ROUTINE DISCHARGE Discharge Condition: GOOD Reason for Admission: Chest pain Consultations: Cardiology-Dr. Wellington Procedures: Impression: Chest pain, atypical with uncontrolled hypertension Hyperlipidemia History of snoring likely underlying obstructive sleep apnea Mild intermittent asthma Obesity, BMI 43 Brief History of Present Illness: 52-year-old female presented to the emergency room with chest pain. Chest pain started last night around 3:00 a.m.. It was mainly to the substernal region. She also had pain to the left arm. There was mild radiation. She thought it was gas related. She woke up that morning and had some Tums with Pepsi. She was elevated better. The pain persisted. There was no indication of shortness of breath, nausea, vomiting, palpitations or lightheadedness. She came to the ER for further evaluation. Patient with history of hypertension. In the ER patient evaluated. Blood pressures elevated upon arrival. Blood pressure 179/115. Initial CBC unremarkable. BMP unremarkable. Troponin unremarkable. No significant EKG changes noted. Patient was admitted for observation. When I saw the patient ER, she appeared comfortable. She reported that the pain was improved with aspirin and nitro given in the emergency room. Blood pressures improved with a blood pressure 153/82. Patient does not smoke or drink alcohol. Patient reports having a stress test many years ago which was unremarkable. Patient does snore heavily. Hospital Course: Patient presented with atypical chest pain. Patient was evaluated emergency room. Cardiac enzymes unremarkable. No significant telemetry changes noted. EKG showed no significant abnormalities. Chest x-ray unremarkable. Patient was observed overnight. Patient seen by Cardiology. No cardiac intervention was required. Blood pressure was elevated. Medications adjusted. At discharge she will continue with aspirin 81 mg daily, lisinopril 20 mg 1 pill twice daily, metoprolol 25 mg 1 pill twice daily, and hydrochlorothiazide 12.5 mg daily. Recommendation is to maintain blood pressures less 150/80. Further adjustment can be done by her PCP. Recommendation is for the patient to follow up with cardiology next week for further evaluation. Patient will need echocardiogram and possible stress test done as an outpatient to further evaluate. Patient found to have hyperlipidemia. LDL 127. Recommendation at discharge is to start Lipitor 40 mg daily. Recommendation on lifestyle modification education. Recheck lab-lipid panel in 4 weeks to monitor her progress. Patient reports snoring at night. Recommendation is for the patient to follow up with pulmonology as an outpatient to evaluate for sleep apnea. Patient will likely require sleep study to further evaluate. Patient with mild intermittent asthma. Mild wheezing was noted. At discharge she will continue with Pro air 2 puffs 3 times a day as needed for shortness of breath. Recommendation is for the patient to follow up with pulmonology as an outpatient to further evaluate. Patient will likely require pulmonary function test to further assess. Patient has obesity. BMI 43. Lifestyle modification education provided. Vital Signs/Physical Exam: Temp Pulse Resp BP Pulse Ox 98.7 F 66 18 162/72 H 95 03/05/18 08:00 03/05/18 08:44 03/05/18 08:00 03/05/18 08:44 03/05/18 08:00 General: Alert, In no apparent distress, Oriented x3, Cooperative HEENT: Atraumatic, Normocephalic, Mucous membr. moist/pink Neck: Supple Respiratory: Expiratory wheezes (faint wheeze otherwise unremarkable) Cardiovascular: Normal pulses, Regular rate/rhythm Gastrointestinal: Normal bowel sounds, Soft and benign, Non-distended, No tenderness, No masses, No rebound, No guarding Musculoskeletal: No erythema, No tenderness, No warmth Integumentary: No tenderness/swelling, No erythema, No warmth, No cyanosis Neurological: Normal speech, Normal strength at 5/5 x4 extr, Normal tone, Normal affect Lymphatics: No axilla or inguinal lymphadenopathy Laboratory Data at Discharge: WBC 3.5 K/uL (4.3-10.9) L D 03/05/18 05:56 Hgb 12.4 g/dL (12.0-15.0) 03/05/18 05:56 Hct 36.2 % (36.0-45.0) 03/05/18 05:56 Plt Count 226 K/uL (152-406) 03/05/18 05:56 PT 14.4 SECONDS (9.5-12.5) H 03/04/18 15:58 INR 1.22 03/04/18 15:58 Sodium 139 mmol/L (136-145) 03/05/18 05:56 Potassium 3.9 mmol/L (3.5-5.1) 03/05/18 05:56 BUN 11 mg/dL (7-18) 03/05/18 05:56 Creatinine 0.90 mg/dL (0.55-1.3) 03/05/18 05:56 Glucose 96 mg/dL (74-106) 03/05/18 05:56 Magnesium 2.0 mg/dL (1.8-2.4) 03/05/18 05:56 Total Bilirubin 0.2 mg/dL (0.2-1.0) 03/04/18 15:58 AST 19 U/L (15-37) 03/04/18 15:58 ALT 23 U/L (12-78) 03/04/18 15:58 Alkaline Phosphatase 86 U/L (45-117) 03/04/18 15:58 Troponin I < 0.02 ng/mL (0.0-0.045) 03/05/18 05:56 Triglycerides 104 mg/dL (<150) 03/05/18 05:56 Cholesterol 191 mg/dL (<200) 03/05/18 05:56 HDL Cholesterol 43 mg/dL (40-60) 03/05/18 05:56 Cholesterol/HDL Ratio 4.44 03/05/18 05:56 Lipase 236 U/L (73-393) 03/04/18 15:58 Home Medications: Albuterol Sulfate [Proair Hfa] 8.5 gm IH TID PRN #1 hfa.aer.ad 03/05/18 Atorvastatin Calcium [Lipitor] 40 mg PO BEDTIME #30 tab 03/05/18 Lisinopril [Prinivil*] 20 mg PO BID #60 tab 03/05/18 Metoprolol Tartrate [Lopressor*] 25 mg PO BID 6AM 6PM #60 tab 03/05/18 Nitroglycerin [Nitrostat*] 0.4 mg SL SEECOM PRN #30 tab 03/05/18 hydroCHLOROthiazide [Hydrochlorothiazide*] 12.5 mg PO DAILY #30 cap 03/05/18 New Medications: Albuterol Sulfate [Proair Hfa] 8.5 gm IH TID PRN #1 hfa.aer.ad PRN Reason: Shortness Of Breath Atorvastatin Calcium [Lipitor] 40 mg PO BEDTIME #30 tab hydroCHLOROthiazide [Hydrochlorothiazide*] 12.5 mg PO DAILY #30 cap Lisinopril [Prinivil*] 20 mg PO BID #60 tab Metoprolol Tartrate [Lopressor*] 25 mg PO BID 6AM 6PM #60 tab Nitroglycerin [Nitrostat*] 0.4 mg SL SEECOM PRN #30 tab PRN Reason: Chest Pain Patient Discharge Instructions: 1. Patient will need to follow up with her PCP to follow up this hospitalization. 2. Patient presented with atypical chest pain. Patient was evaluated emergency room. Cardiac enzymes unremarkable. No significant telemetry changes noted. EKG showed no significant abnormalities. Chest x-ray unremarkable. Patient was observed overnight. Patient seen by Cardiology. No cardiac intervention was required. Blood pressure was elevated. Medications adjusted. At discharge she will continue with aspirin 81 mg daily, lisinopril 20 mg 1 pill twice daily, metoprolol 25 mg 1 pill twice daily, and hydrochlorothiazide 12.5 mg daily. Recommendation is to maintain blood pressures less 150/80. Further adjustment can be done by her PCP. Recommendation is for the patient to follow up with cardiology next week for further evaluation. Patient will need echocardiogram and possible stress test done as an outpatient to further evaluate. 3. Patient found to have hyperlipidemia. LDL 127. Recommendation at discharge is to start Lipitor 40 mg daily. Recommendation on lifestyle modification education. Recheck lab- lipid panel in 4 weeks to monitor her progress. 4. Patient reports snoring at night. Recommendation is for the patient to follow up with pulmonology as an outpatient to evaluate for sleep apnea. Patient will likely require sleep study to further evaluate. 5. Patient with mild intermittent asthma. Mild wheezing was noted. At discharge she will continue with Pro air 2 puffs 3 times a day as needed for shortness of breath. Recommendation is for the patient to follow up with pulmonology as an outpatient to further evaluate. Patient will likely require pulmonary function test to further assess. 6. Patient has obesity. BMI 43. Lifestyle modification education provided. Diet: AHA Activity: Ad elsa Time spent managing pt's care (in minutes): 55
[2018-03-05 10:48] VITALS: O2SAT 98
[2018-03-05 12:45] VITALS: BP 152/85; TEMP 97.7
[2018-03-05] MEDS ORDERED: METOPROLOL TAR 25 MG TAB PO SCH (18:00)
[2018-03-05] MEDS ORDERED: ATORVASTATIN 40 MG TAB PO SCH (21:00)
--- NOTE | 2018-03-06 22:15 | CON ---
Date of Consultation: 03/04/2018 Reason For Consultation: Chest pain and hypertension. History Of Present Illness: Ms. Newsome is 52, has a history of hypertension, otherwise no significant past cardiac history. 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 She had a negative workup at that time. Came in with a substernal chest pain that did not radiate, was not exertional. No nause a or vomiting or diaphoresis. Has some dyspnea on exertion. Allergies: INCLUDE AUGMENTIN. Review of Systems: Negative. Social History: Negative. Family History: Negative. Past Medical History: Includes hypertension. Medications: No medications at home. Physical Examination: Vital signs: Stable. Afebrile. HEENT: Negative. Neck: Supple with no bruit. Chest: Clear to auscultation and percussion. Cardiac: Revealed a regular rhythm and rate without any murmurs, gallops, or rubs. Abdomen: Benign. Extremities: Revealed no clubbing, cyanosis, or edema. Diagnostic Data: All within normal limit. Impression And Plan: The patient with hypertension, dyspnea on exertion, and chest pain that is mid epigastric with no other associated symptoms. Echocardiogram and stress test should probably be done as an outpatient. She can go home whenever it is okay with Dr. Pizarro. EPI/KERRY Voice ID: [id number] Report ID: [id number]
== END 2018-03-05 13:19 | disposition home or self-care (01) ==
LOC: ER 15:19 → ERHOLD 17:01 → 4TH 20:44
PROVIDERS: ADMIT Family Medicine; ATTEND Family Medicine
DX: R07.89 Other chest pain (principal); E78.5 Hyperlipidemia, unspecified; J45.20 Mild intermittent asthma, uncomplicated; E66.9 Obesity, unspecified; Z68.41 Body mass index [BMI] 40.0-44.9, adult; I10 Essential (primary) hypertension; Z88.0 Allergy status to penicillin
CPT/HCPCS: 36415; 71045; 80048; 80061; 80076; 81003; 81015; 82550; 82553; 83690; 83735; 83880; 84439; 84443; 84484; 85025; 85610; 87086; 87088; 93005; 99285; G0378; J1650